=== PATIENT | female | born 1970 | race Caucasian/White ===

== ENCOUNTER 2018-06-02 09:58 | Emergency (ER) | payer SELFPAY ==
[2018-06-02 10:03] VITALS: BP 151/89
--- NOTE | 2018-06-02 10:22 | ER Document Report ---
ED Medical Screen (RME) - General Chief Complaint: Chest Congestion Stated Complaint: COUGH Time Seen by Provider: 06/02/18 10:05 TRAVEL OUTSIDE OF THE [place] IN LAST 30 DAYS: No - HPI Patient complains to provider of: Cough times 5 weeks Onset: Other - This 47-year-old female with no known medical problems the presents for evaluation of cough over the last 5 weeks. She has had multiple episodes of cough in the past primarily was a limited to change in environment. She is a longtime smoker however. She is been coughing persistently during this time and was told by her boss today that she had to leave work in order to obtain an evaluation because they were concerned about her health. She denies fevers, chills, chest pain, abdominal pain, diarrhea constipation dysuria. - Related Data Allergies/Adverse Reactions: No Known Allergies Allergy (Verified 06/02/18 09:58) Past Medical History - General Information source: Patient - Social History Cigarette use (# per day): Yes Frequency of alcohol use: None Drug Abuse: None Renal/ Medical History: Denies: Hx Peritoneal Dialysis Past Surgical History: Reports: Hx Appendectomy, Hx Gynecologic Surgery - ovarian cyst Review of Systems - Review of Systems -: Yes All other systems reviewed and negative Physical Exam - Vital signs Vitals: Temp Pulse Resp BP Pulse Ox 98.7 F 87 20 151/89 H 99 06/02/18 10:02 06/02/18 10:02 06/02/18 10:02 06/02/18 10:02 06/02/18 10:02 Interpretation: Normal - General General appearance: Appears well, Alert - HEENT Head: Normocephalic, Atraumatic Eyes: Normal Pupils: PERRL - Respiratory Respiratory status: No respiratory distress Chest status: Nontender Breath sounds: Normal Chest palpation: Normal - Cardiovascular Rhythm: Regular Heart sounds: Normal auscultation Murmur: No - Abdominal Inspection: Normal Distension: No distension Bowel sounds: Normal Tenderness: Nontender Organomegaly: No organomegaly - Back Back: Normal, Nontender - Extremities General upper extremity: Normal inspection, Nontender, Normal color, Normal ROM, Normal temperature General lower extremity: Normal inspection, Nontender, Normal color, Normal ROM, Normal temperature, Normal weight bearing. No: Henry's sign - Neurological Neuro grossly intact: Yes Cognition: Normal Orientation: AAOx4 [place] Coma Scale Eye Opening: Spontaneous [place] Coma Scale Verbal: Oriented [place] Coma Scale Motor: Obeys Commands [place] Coma Scale Total: 15 Speech: Normal Motor strength normal: LUE, RUE, LLE, RLE Sensory: Normal - Psychological Associated symptoms: Normal affect, Normal mood - Skin Skin Temperature: Warm Skin Moisture: Dry Skin Color: Normal Course - Re-evaluation Re-evalutation: 06/02/18 11:36 47-year-old female who is an everyday smoker the presents for evaluation of persistent cough over the last 5 weeks. She denies any other systemic signs of infection at this time. Has no obvious wheezes. Does appear to have an erythematous oropharynx. Slight rhinorrhea notes that she has had episodes like this several times in the past upon changing locations from [place]. Currently her complaint is of the persistent cough and inability to sleep. We will plan for chest x-ray for potential underlying tuberculosis pneumonia or obvious mass. Chest x-ray is negative at this time. We will plan for presumptive treatment of potential developing reactive airway disease, will treat with steroid, inhaled corticosteroid, albuterol as needed. She will also be given Tessalon Perles as an antitussive. She is discharged with return precautions and encouraged follow-up with primary physician as well as smoking cessation guidelines. - Vital Signs Vital signs: Temp Pulse Resp BP Pulse Ox 98.7 F 87 20 151/89 H 99 06/02/18 10:02 06/02/18 10:02 06/02/18 10:02 06/02/18 10:02 06/02/18 10:02 Doctor's Discharge - Discharge Clinical Impression: Cough, Congestion of respiratory tract Condition: Good Disposition: HOME, SELF-CARE Instructions: Cough Suppressant & Expectorant Medications Additional Instructions: You were seen today in the emergency department for your persistent cough. You had evaluation including a physical exam as well as a chest x-ray. Your chest x-ray does not show a pneumonia, it does not show any obvious tumors. I do think it is important that you stop smoking. These are medicines to try and help with the symptoms you are having, you have been given steroids which you should take over the next several days as directed on the bottle. You have been given Tessalon Perles to help with the cough which you are having. You have been given an inhaler to use as needed it is called albuterol. You have been given an inhaler to use every day called budesonide. It is possible that you are developing COPD because of your long-term smoking. It is also possible these are related to allergies in the environment, it is okay to take allergy medication if you would like such as cetirizine or Benadryl at night. Prescriptions: Benzonatate [Tessalon Perle 100 mg Capsule] 100 mg PO Q8HP PRN #40 cap PRN Reason: Albuterol Sulfate [Proair HFA Inhalation Aerosol 8.5 gm MDI] 200 puff IH Q4H PRN #1 [id number].[email or web address] PRN Reason: Budesonide [Pulmicort 180 mcg Flexhaler] 180 mcg IH DAILY #1 aer.pow.[email or web address] Prednisone 50 mg PO DAILY #5 tablet Forms: Smoking Cessation Education, Elevated Blood Pressure Referrals: [facility] [Provider Group] - Follow up as needed
[2018-06-02] MEDS ORDERED: PREDNISONE 20 MG TABLET PO ONE (10:30)
[2018-06-02] MEDS ORDERED: BUDESONIDE/FORMOTEROL 160-4.5 MCG 60 PUFF/6 GM MDI IH ONE (10:31)
--- NOTE | 2018-06-02 10:39 | RADIOLOGY REPORT (SQ) ---
EXAM DESCRIPTION: CHEST 2 VIEWS COMPLETED DATE/TIME: 06/02/2018 10:26 am REASON FOR STUDY: cough, possible tb COMPARISON: None. EXAM PARAMETERS: NUMBER OF VIEWS: two views TECHNIQUE: Digital Frontal and Lateral radiographic views of the chest acquired. RADIATION DOSE: NA LIMITATIONS: none FINDINGS: LUNGS AND PLEURA: No opacities, masses or pneumothorax. No pleural effusion. MEDIASTINUM AND HILAR STRUCTURES: No masses or contour abnormalities. HEART AND VASCULAR STRUCTURES: Heart normal size. No evidence for failure. BONES: No acute findings. HARDWARE: None in the chest. OTHER: No other significant finding. IMPRESSION: NO ACUTE DISEASE. TECHNICAL DOCUMENTATION: JOB ID: [id number] [employer]- All Rights Reserved Reading location - IP/workstation name: [email or web address]
[2018-06-02] MEDS ORDERED: ALBUTEROL SULFATE HFA (90 MCG/PUFF) 8 GM MDI (1 MDI/ER DISP) IH SCH (12:00)
== END 2018-06-02 11:08 | disposition home or self-care (01) ==
LOC: ER 09:58
DX: R09.89 Other specified symptoms and signs involving the circulatory and respiratory systems (principal); R05 Cough; F17.210 Nicotine dependence, cigarettes, uncomplicated
CPT/HCPCS: 99283; 71046; J3490 ×2; J7512